=== PATIENT | female | born 2000 | race Caucasian/White ===

== ENCOUNTER 2024-07-28 20:19 | Emergency (ER) | payer BC, MEDICAID ==
[2024-07-28] MEDS: Ketorolac 30 MG/ML SDV IM ONE (20:51)
== END 2024-07-28 21:02 | disposition home or self-care (01) ==
LOC: FB.ED 20:19
DX: S93.602A Unspecified sprain of left foot, initial encounter (principal); I10 Essential (primary) hypertension; Z86.16 Personal history of COVID-19; Z91.018 Allergy to other foods; Z79.899 Other long term (current) drug therapy; W20.8XXA Other cause of strike by thrown, projected or falling object, initial encounter
CPT/HCPCS: 73630; 96372; 99283; J1885